=== PATIENT | male | born 1935 | race Caucasian/White ===

== ENCOUNTER 2021-01-11 08:18 | Inpatient (IN) ==
[2021-01-11] MEDS ORDERED: 0.9 % Sodium Chloride 1,000 ML IVC ONE (08:23)
[2021-01-11 08:50] LABS: Basophils % 0.4 %; Eosinophils % 0.4 %; Hematocrit 40.8 % (37.5-50.1); Hemoglobin 13.4 g/dL (12.9-16.9); Immature Granulocytes % 0.5 % (0-4); Lymphocytes # 0.3 K/mcL (0.6-4.6); Lymphocytes % 4.1 %; Mean Corpuscular HGB Conc 32.8 g/dL (31.6-35.5); Mean Corpuscular Hemoglobin 31.4 pg (28.0-33.3); Mean Corpuscular Volume 95.6 fL (83.0-100.0); Mean Platelet Volume 11.1 fL (9.4-12.4); Monocytes # 0.1 K/mcL (0.0-1.3); Monocytes % 0.6 %; Neutrophils # 7.5 K/mcL (1.6-8.9); Platelet Count 191 K/mcL (140-400); Red Blood Count 4.27 M/mcL (4.19-5.50); Red Cell Distribution Width 13.6 % (11.5-14.5)
[2021-01-11] MEDS ORDERED: Azithromycin 500 MG in 0.9 % Sodium Chloride 250 ML IVPB ONE (08:57)
[2021-01-11] MEDS ORDERED: cefTRIAXone 1,000 MG in 0.9 % Sodium Chloride Mini Bag 100 ML IVPB ONE (08:57)
[2021-01-11 09:00] LABS: INR 1.5; Prothrombin Time 16.7 Seconds (9.4-12.1)
[2021-01-11 09:15] LABS: Albumin 4.2 g/dL (3.5-5.7); Albumin/Globulin Ratio 1.6 (1.1-2.2); Bilirubin,Direct 0.4 mg/dL (0.0-0.2); Bilirubin,Indirect 0.9 mg/dL (0.0-1.0); Bilirubin,Total 1.3 mg/dL (0.3-1.0); Calcium 9.6 mg/dL (8.6-10.3); Globulin 2.7 g/dL (2.4-3.5); Potassium 4.4 mEq/L (3.5-5.1); Total Protein 6.9 g/dL (6.4-8.9); Troponin I 0.05 ng/mL (< 0.04)
[2021-01-11] MEDS ORDERED: 0.9 % Sodium Chloride 1,000 ML IV ONE (09:51)
[2021-01-11 10:02] LABS: Bacteria,Urine Few per hpf (None-Few); Bilirubin,Urine Negative (Negative); Blood,Urine Negative (Negative); Clarity,Urine Clear (Clear); Color,Urine Yellow (Yellow); Glucose,Urine (UA) Normal (Normal); Ketones,Urine Negative (Negative); Leukocyte Esterase,Urine Negative (Negative); Nitrite,Urine Negative (Negative); Protein,Urine 30 mg/dL (Neg-Trace); Sperm,Urine Present (None Seen); Urobilinogen,Urine Normal (Normal); WBC,Urine 0-3 per hpf (0-3)
[2021-01-11] MEDS ORDERED: Aspirin 81 MG TAB.CHEW PO SCH (10:45)
[2021-01-11] MEDS ORDERED: Naloxone 0.4 MG/ML INJ IVP PRN (11:31)
[2021-01-11] MEDS ORDERED: Ondansetron 4 MG/2 ML VIAL IVP PRN (11:31)
[2021-01-11] MEDS ORDERED: Ringers Solution, Lactated 1,000 ML IVC SCH (11:45)
[2021-01-11] MEDS ORDERED: polyethylene glycoL 3350 17 GM POWD.PACK PO PRN (13:40)
[2021-01-11] MEDS ORDERED: Acetaminophen 325 MG TABLET PO PRN (14:17)
[2021-01-11] MEDS: Apixaban 2.5 MG TABLET PO SCH (19:50)
[2021-01-11] MEDS: Ranolazine 500 MG TAB.ER.12H PO SCH (19:51)
[2021-01-11] MEDS: Metoprolol XL (24 HR) Succ 25 MG TAB.ER.24H PO SCH (19:51)
[2021-01-11] MEDS: FLUoxetine 20 MG CAPSULE PO SCH (19:51)
[2021-01-11] MEDS: Psyllium 1 PACKET POWD.PACK PO SCH (19:51)
[2021-01-12] MEDS: Melatonin 3 MG TABLET PO PRN ×2 (03:02→19:52)
[2021-01-12 06:08] LABS: Basophils % 0.4 %; Eosinophils % 0.2 %; Hematocrit 37.5 % (37.5-50.1); Hemoglobin 12.3 g/dL (12.9-16.9); Immature Granulocytes % 0.4 % (0-4); Lymphocytes # 1.3 K/mcL (0.6-4.6); Mean Corpuscular HGB Conc 32.8 g/dL (31.6-35.5); Mean Corpuscular Volume 97.7 fL (83.0-100.0); Mean Platelet Volume 12.1 fL (9.4-12.4); Monocytes # 1.1 K/mcL (0.0-1.3); Monocytes % 9.2 %; Platelet Count 141 K/mcL (140-400); Red Blood Count 3.84 M/mcL (4.19-5.50); Red Cell Distribution Width 14.2 % (11.5-14.5); Segmented Neutrophils % 78.8 %; White Blood Count 11.4 K/mcL (4.3-11.1)
[2021-01-12 06:25] LABS: Calcium 8.9 mg/dL (8.6-10.3); Potassium 4.2 mEq/L (3.5-5.1)
[2021-01-12] MEDS: Psyllium 1 PACKET POWD.PACK PO SCH ×2 (07:29→19:53)
[2021-01-12] MEDS: Aspirin Enteric Coated 81 MG Tablet PO SCH (07:29)
[2021-01-12] MEDS: Metoprolol XL (24 HR) Succ 25 MG TAB.ER.24H PO SCH ×2 (07:29→19:53)
[2021-01-12] MEDS: Isosorbide MONOnitrate (24 HR) 60 MG TAB.ER.24H PO SCH (07:30)
[2021-01-12] MEDS: Apixaban 2.5 MG TABLET PO SCH ×2 (07:30→19:52)
[2021-01-12] MEDS: FLUoxetine 20 MG CAPSULE PO SCH ×2 (07:30→19:52)
[2021-01-12] MEDS: Azithromycin 500 MG in 0.9 % Sodium Chloride 250 ML IVPB SCH (07:30)
[2021-01-12] MEDS: Ranolazine 500 MG TAB.ER.12H PO SCH ×2 (07:30→19:52)
[2021-01-12] MEDS ORDERED: Perflutren Lipid Microsphere 1.3 ML in 0.9 % Sodium Chloride 8.7 ML IVP PRN (08:35)
[2021-01-12] MEDS ORDERED: cefTRIAXone 1,000 MG in 0.9 % Sodium Chloride Mini Bag 100 ML IVPB SCH (09:00)
[2021-01-12] MEDS: Furosemide 40 MG TABLET PO SCH (09:57)
[2021-01-12] MEDS ORDERED: Ipratropium/Albuterol Neb 3 ML IH PRN (11:05)
[2021-01-12 12:01] LABS: Estimated Average Glucose 126 mg/dl
[2021-01-12] MEDS: Piperacillin/Tazobactam 3.375 GM in 0.9 % Sodium Chloride Mini Bag 100 ML IVPB SCH (17:16)
[2021-01-13] MEDS: Piperacillin/Tazobactam 3.375 GM in 0.9 % Sodium Chloride Mini Bag 100 ML IVPB SCH ×3 (00:20→16:44)
[2021-01-13 00:37] LABS: Eosinophils % 1.3 %; Platelet Count 128 K/mcL (140-400); Segmented Neutrophils % 69.1 %
[2021-01-13 00:38] LABS: Basophils % 0.5 %; Eosinophils # 0.1 K/mcL (0.0-0.6); Hematocrit 34.7 % (37.5-50.1); Hemoglobin 11.4 g/dL (12.9-16.9); Immature Granulocytes % 0.2 % (0-4); Immature Platelets 5.3 % (1.1-6.1); Lymphocytes # 1.6 K/mcL (0.6-4.6); Mean Corpuscular HGB Conc 32.9 g/dL (31.6-35.5); Mean Corpuscular Hemoglobin 31.9 pg (28.0-33.3); Mean Corpuscular Volume 97.2 fL (83.0-100.0); Mean Platelet Volume 11.8 fL (9.4-12.4); Monocytes % 10.9 %; Red Blood Count 3.57 M/mcL (4.19-5.50); White Blood Count 8.7 K/mcL (4.3-11.1)
[2021-01-13 00:54] LABS: Chol/HDL Ratio 4.6 (0-4.9)
[2021-01-13 00:55] LABS: Calcium 8.4 mg/dL (8.6-10.3); Magnesium 2.1 mg/dL (1.6-2.6); Phosphorous 3.3 mg/dL (2.7-4.5)
[2021-01-13] MEDS: Psyllium 1 PACKET POWD.PACK PO SCH ×2 (08:03→20:24)
[2021-01-13] MEDS: Furosemide 40 MG TABLET PO SCH (08:05)
[2021-01-13] MEDS: Apixaban 2.5 MG TABLET PO SCH ×2 (08:05→20:21)
[2021-01-13] MEDS: FLUoxetine 20 MG CAPSULE PO SCH ×2 (08:05→20:22)
[2021-01-13] MEDS: Aspirin Enteric Coated 81 MG Tablet PO SCH (08:05)
[2021-01-13] MEDS: Metoprolol XL (24 HR) Succ 25 MG TAB.ER.24H PO SCH ×2 (08:06→20:22)
[2021-01-13] MEDS: Isosorbide MONOnitrate (24 HR) 60 MG TAB.ER.24H PO SCH (08:06)
[2021-01-13] MEDS: Ranolazine 500 MG TAB.ER.12H PO SCH ×2 (08:06→20:22)
[2021-01-13] MEDS: Azithromycin 500 MG in 0.9 % Sodium Chloride 250 ML IVPB SCH (08:27)
[2021-01-13] MEDS: hydrALAZINE 25 MG TABLET PO SCH ×3 (10:37→20:22)
[2021-01-14] MEDS: Piperacillin/Tazobactam 3.375 GM in 0.9 % Sodium Chloride Mini Bag 100 ML IVPB SCH (03:36)
[2021-01-14] MEDS: Isosorbide MONOnitrate (24 HR) 60 MG TAB.ER.24H PO SCH (08:39)
[2021-01-14] MEDS: FLUoxetine 20 MG CAPSULE PO SCH (08:40)
[2021-01-14] MEDS: Apixaban 2.5 MG TABLET PO SCH (08:43)
[2021-01-14] MEDS: Ranolazine 500 MG TAB.ER.12H PO SCH (08:45)
[2021-01-14] MEDS: Metoprolol XL (24 HR) Succ 25 MG TAB.ER.24H PO SCH (08:45)
[2021-01-14] MEDS: hydrALAZINE 25 MG TABLET PO SCH (08:46)
[2021-01-14] MEDS: Aspirin Enteric Coated 81 MG Tablet PO SCH (08:46)
[2021-01-14] MEDS: Furosemide 40 MG TABLET PO SCH (08:47)
[2021-01-14] MEDS: Psyllium 1 PACKET POWD.PACK PO SCH (08:47)
[2021-01-14] MEDS ORDERED: levoFLOXacin 500 MG TABLET PO SCH (09:00)
[2021-01-14 09:33] VITALS: BP 140/83
== END 2021-01-14 12:05 | disposition home health service (06) | DRG 871 ==
LOC: CDU 08:18 → EMEROOARM 08:18 → SUATTDRO 13:01 → CDU 13:42 → 3BNU 16:22
PROVIDERS: ADMIT Family Medicine; ATTEND Internal Medicine

== ENCOUNTER 2021-05-17 16:54 | Observation (INO) ==
[2021-05-17 18:07] LABS: Basophils # 0.1 K/mcL (0.0-0.2); Basophils % 0.6 %; Eosinophils # 0.2 K/mcL (0.0-0.6); Eosinophils % 2.6 %; Hematocrit 41.2 % (37.5-50.1); Hemoglobin 12.7 g/dL (12.9-16.9); Immature Granulocytes % 0.4 % (0-4); Lymphocytes % 24.5 %; Mean Corpuscular HGB Conc 30.8 g/dL (31.6-35.5); Mean Corpuscular Hemoglobin 30.5 pg (28.0-33.3); Mean Corpuscular Volume 98.8 fL (83.0-100.0); Monocytes # 0.7 K/mcL (0.0-1.3); Monocytes % 8.5 %; Neutrophils # 5.3 K/mcL (1.6-8.9); Platelet Count 169 K/mcL (140-400); Red Blood Count 4.17 M/mcL (4.19-5.50); Red Cell Distribution Width 13.6 % (11.5-14.5); Segmented Neutrophils % 63.4 %; White Blood Count 8.3 K/mcL (4.3-11.1)
[2021-05-17 18:18] LABS: INR 1.5; Prothrombin Time 16.8 Seconds (9.4-12.1)
[2021-05-17 18:21] LABS: Activated Partial Thrombo Time 38.7 Seconds (26.0-36.0)
[2021-05-17 18:30] LABS: Alanine Aminotransferase 16 Units/L (7-52); Albumin 4.7 g/dL (3.5-5.7); Albumin/Globulin Ratio 1.6 (1.1-2.2); Alkaline Phosphatase 116 Units/L (34-104); Aspartate Amino Transferase 17 Units/L (13-39); BUN/Creatinine Ratio 10 (6-26); Bilirubin,Total 0.7 mg/dL (0.3-1.0); Blood Urea Nitrogen 15 mg/dL (8-23); Calcium 9.7 mg/dL (8.6-10.3); Carbon Dioxide 29 mEq/L (23-29); Chloride 103 mEq/L (98-107); Glucose 103 mg/dL (70-105); Magnesium 2.2 mg/dL (1.6-2.6); Osmolality,Calculated 289 (280-300); Potassium 4.2 mEq/L (3.5-5.1); Sodium 139 mEq/L (136-145); Total Protein 7.7 g/dL (6.4-8.9); Troponin I < 0.03 ng/mL (< 0.04); eGFR For African Americans 54 (> 60); eGFR For Non-African Americans 44 (> 60)
[2021-05-17 18:42] LABS: Thyroid Stimulating Hormone 1.926 mcIU/mL (0.340-5.600)
[2021-05-17] MEDS ORDERED: Naloxone 0.4 MG/ML INJ IVP PRN (19:56)
[2021-05-17] MEDS ORDERED: Ondansetron 4 MG/2 ML VIAL IVP PRN (19:56)
[2021-05-17] MEDS ORDERED: Acetaminophen 325 MG TABLET PO PRN (19:56)
[2021-05-18 05:06] LABS: Basophils # 0.1 K/mcL (0.0-0.2); Basophils % 0.6 %; Eosinophils # 0.2 K/mcL (0.0-0.6); Eosinophils % 2.5 %; Hematocrit 37.6 % (37.5-50.1); Immature Granulocytes % 0.3 % (0-4); Lymphocytes # 1.8 K/mcL (0.6-4.6); Lymphocytes % 20.2 %; Mean Corpuscular HGB Conc 31.9 g/dL (31.6-35.5); Mean Corpuscular Hemoglobin 30.8 pg (28.0-33.3); Mean Corpuscular Volume 96.7 fL (83.0-100.0); Mean Platelet Volume 11.7 fL (9.4-12.4); Monocytes # 0.8 K/mcL (0.0-1.3); Monocytes % 9.5 %; Neutrophils # 5.9 K/mcL (1.6-8.9); Platelet Count 163 K/mcL (140-400); Red Blood Count 3.89 M/mcL (4.19-5.50); Red Cell Distribution Width 13.5 % (11.5-14.5); Segmented Neutrophils % 66.9 %; White Blood Count 8.8 K/mcL (4.3-11.1)
[2021-05-18 05:16] LABS: Calcium 9.2 mg/dL (8.6-10.3); Magnesium 2.1 mg/dL (1.6-2.6); Potassium 4.2 mEq/L (3.5-5.1)
[2021-05-18] MEDS ORDERED: Perflutren Lipid Microsphere 1.3 ML in 0.9 % Sodium Chloride 8.7 ML IVP PRN (08:44)
[2021-05-18] MEDS: Aspirin 81 MG TAB.CHEW PO SCH (11:28)
[2021-05-18 15:40] LABS: Estimated Average Glucose 131 mg/dl; Hemoglobin A1C 6.2 %
[2021-05-18] MEDS: Isosorbide MONOnitrate (24 HR) 60 MG TAB.ER.24H PO SCH (17:24)
[2021-05-18] MEDS: Furosemide 40 MG TABLET PO SCH (17:24)
[2021-05-18] MEDS: hydrALAZINE 25 MG TABLET PO SCH ×2 (17:25→22:06)
[2021-05-18] MEDS ORDERED: Latanoprost 2.5 ML BOTTLE BOTH EYES SCH (21:00)
[2021-05-18] MEDS ORDERED: FLUoxetine 20 MG CAPSULE PO SCH (21:00)
[2021-05-18] MEDS: Apixaban 5 MG TABLET PO SCH (22:06)
[2021-05-19 06:41] VITALS: BP 123/61; PULSE 57; TEMP 98.7; O2SAT 93
[2021-05-19] MEDS ORDERED: amLODIPine 5 MG TABLET PO SCH (09:00)
[2021-05-19] MEDS: Apixaban 5 MG TABLET PO SCH (10:00)
[2021-05-19] MEDS: Furosemide 40 MG TABLET PO SCH (10:00)
[2021-05-19] MEDS: Isosorbide MONOnitrate (24 HR) 60 MG TAB.ER.24H PO SCH (10:00)
[2021-05-19] MEDS: hydrALAZINE 25 MG TABLET PO SCH (10:01)
[2021-05-19] MEDS: Aspirin 81 MG TAB.CHEW PO SCH (10:01)
== END 2021-05-19 11:39 | disposition home or self-care (01) ==
LOC: 3BNU 16:54 → EMEROOARM 16:54 → SUATTDRO 19:41 → 3BNU 20:38
PROVIDERS: ADMIT Internal Medicine; ATTEND Internal Medicine